=== PATIENT | female | born 1965 | race Two or more races ===

== ENCOUNTER → 2016-09-05 | Outpatient (CLI) | payer OTHER ==
--- NOTE | ~2016-09-05 | MY11 ---
[facility] A Service of [facility] RADIOLOGY TEXT RESULTS PATIENT: RACHEL DOWNEY LOCATION: [facility] : 63 UNIT #: [id number] AGE: [address]: Maurice Vega MD SEX: F ORDER DR: [id number] [facility]. [place], [place] [address] [id number] O MR#: [id number] Acc #: [id number] NAME: RACHEL DOWNEY : 1965 SEX: F STUDY DATE/TIME: 09/05/2016 11:24 UNIT: [facility] ROOM: STUDY DESCRIPTION: MY Mammogram Screening Dig Mukesh Attending Physician: Maurice Concepcion M.D. Ordering Physician: Maurice Concepcion M.D. Primary Care Physician: Maurice Concepcion M.D. MEDICAL IMAGING REPORT This report is preliminary unless electronic signature is present EXAM Bilateral Digital Screening Mammogram with CAD INDICATION Breast cancer screening. 51-year-old asymptomatic female. No personal or family history of breast cancer. COMPARISON None. Baseline exam. FINDINGS There are scattered fibroglandular tissues. No suspicious findings are present. IMPRESSION No mammographic evidence of malignancy. Annual screening mammography and clinical breast exam are recommended. A result letter will be sent to the patient. Patients over the age of 40 are entered into a reminder system with target due date for the next mammogram. BIRADS: 1 Negative Dictated by... Cuauhtemoc Bradford M.D. THIS IS AN ELECTRONICALLY VERIFIED REPORT Cuauhtemoc Bradford M.D. at 09/05/2016 5:28 PM GUS/[place]inee [facility] A Service [facility] RADIOLOGY TEXT RESULTS PATIENT: RACHEL DOWNEY LOCATION: [facility] : 63 UNIT #: [id number] AGE: [address]: Maurice Vega MD SEX: F ORDER DR: TD: 09/05/2016 13:53 JOB #: [id number] MEDICAL IMAGING REPORT Page 1 of 1 COPY
== END | disposition home or self-care (01) ==
LOC: CWCC 11:00
DX: Z12.31 Encounter for screening mammogram for malignant neoplasm of breast (principal)
CPT/HCPCS: G0202